=== PATIENT | male | born 1980 | race American Indian/Alaskan Native ===

== ENCOUNTER 2020-02-11 11:38 | Emergency (ER) | payer SELFPAY ==
[2020-02-11 11:49] VITALS: BP 152/108
--- NOTE | 2020-02-11 11:57 | Emergency Department Report ---
Chief Complaint: Extremity Injury, Lower Stated Complaint: hip to thigh pain Time Seen by Provider: 02/11/20 11:49 - HPI History of Present Illness: no fall or trauma pain radiating down RLE - ROS Review of Systems: low back pain rad down r leg no cva tenderness no fever no chills wants work note - Exam Vital Signs: Vital Signs 02/11/20 11:44 Temperature 97.9 F Pulse Rate 73 Respiratory 18 Rate Blood Pressure 152/108 O2 Sat by Pulse 96 Oximetry MSE screening note: Focused history and physical exam performed. Due to findings the following was ordered: NO LIFE THREAT MSE HOME ED Disposition for MSE Clinical Impression: Sciatic hernia Disposition: DC-01 TO HOME OR SELFCARE Is pt being admited?: No Does the pt Need Aspirin: No Condition: Stable Additional Instructions: WARM COMPRESSES MOTRIN 800 MG EVERY 8 HOURS WITH FOOD Referrals: DEVANTE MARKS MD [Staff Physician] - 3-5 Days Forms: Work/School Release Form(ED) Time of Disposition: 11:56
== END 2020-02-11 11:55 | disposition home or self-care (01) ==
LOC: ED 11:38
DX: K45.8 Other specified abdominal hernia without obstruction or gangrene (principal)
CPT/HCPCS: 99282